=== PATIENT | male | born 1985 | race Caucasian/White ===

== ENCOUNTER → 2017-12-15 16:02 | Outpatient (CLI) | payer OTHER, MEDICAID, SELFPAY ==
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
[2017-12-15 17:25] LABS: Add Manual Diff / Slide Review NO; Basophils Percent Auto 0.8 % (0-2); Eosinophils Percent Auto 3.2 % (2-4); Hemoglobin 13.6 g/dL (13.5-17.5); Lymphocytes Percent Auto 20.7 % (25-40); Mean Corpuscular HGB Conc 33.9 % (30-36); Mean Corpuscular Volume 85.4 fL (80-100); Monocytes Percent Auto 5.4 % (3-14); Neutrophils Absolute Auto 6900 /uL (3000-5900); Neutrophils Percent Auto 69.9 % (50-75); Platelet Count 239 X10^3/uL (150-400); Red Blood Cell Count 4.68 X10^6/uL (4.5-5.9); Red Cell Distribution Width 13.5 % (11.6-14.8); White Blood Cell Count 9.9 X10^3/uL (4.5-11.0)
== END ==
PROVIDERS: PCP Family Medicine; Visit Provider Nurse Practitioner Family
DX: M54.16 Radiculopathy, lumbar region (principal); F41.9 Anxiety disorder, unspecified
CPT/HCPCS: 36415; 72100; 83013; 85025

== ENCOUNTER → 2017-12-25 12:55 | Outpatient (CLI) | payer OTHER, MEDICAID, SELFPAY ==
[2017-12-25 13:38] LABS: Alanine Aminotransferase 24 IU/L (21-72); Albumin 4.9 g/dL (3.5-5.0); Albumin Globulin Ratio 1.7 (1.0-2.8); Alkaline Phosphatase 56 U/L (38-126); Aspartate Aminotransferase 15 IU/L (17-59); Bilirubin Total 0.4 mg/dL (0.2-1.3); Blood Urea Nitrogen 16 mg/dL (9-20); Calcium 9.4 mg/dL (8.4-10.2); Carbon Dioxide 27 mmol/L (22-32); Chloride 104 mmol/L (98-107); Estimated Glomerular Filt Rate > 60.0 mL/min (>60); Globulin 2.9 g/dL (1.7-4.1); Glucose 99 mg/dL (70-100); HEMOLYSIS < 15 (0-50); Potassium 4.5 mmol/L (3.4-5.1); Sodium 143 mmol/L (137-145); Total Protein 7.8 g/dL (6.3-8.2)
[2017-12-25 14:25] LABS: TSH w/ Reflex to FT4 0.88 uIU/mL (0.47-4.68)
== END ==
PROVIDERS: PCP Family Medicine; Visit Provider Family Medicine
DX: R63.4 Abnormal weight loss (principal)
CPT/HCPCS: 36415; 80053; 84443

== ENCOUNTER → 2018-01-06 14:40 | Outpatient (CLI) | payer OTHER, MEDICAID, SELFPAY ==
--- NOTE | 2018-01-06 14:44 | DI.MRI.S_ITS ---
PROCEDURE: MR LUMBAR SPINE WO CON INDICATIONS: Low back pain with RLE sciatica TECHNIQUE: Noncontrast sagittal T1 spin echo and T2 fast echo, sagittal STIR, axial T1 and T2 fast spin echo through the lumbar spine. In cases with scoliosis, additional coronal T2 fast spin echo may be performed. COMPARISON: [facility], CR, XR LUMBAR SPINE 2-3V, 12/15/2017, 15:58. FINDINGS: Image quality: Excellent. Alignment and Curvature: There is mild straightening of normal curvature. Bone Marrow: Marrow is of normal overall signal. Increased marrow signal at L3 and L5 is present most suggestive of hemangiomas. No acute vertebral body compression fractures. Spinal Cord: Conus medullaris terminates at the L1-L2 level. Visualized cord demonstrates normal signal and size. Paraspinous Soft Tissues: No paravertebral masses. L1-L2: No disc bulge, spinal stenosis or foraminal narrowing. L2-L3: No disc bulge, spinal stenosis or foraminal narrowing. L3-L4: Trace disc bulge without spinal stenosis or foraminal narrowing. Minimal epidural lipomatosis. L4-L5: Trace disc bulge without spinal stenosis or foraminal narrowing. L5-S1: Trace disc bulge without spinal stenosis or foraminal narrowing. IMPRESSION: 1. Multilevel trace disc bulges. No spinal stenosis or foraminal narrowing. Dictated by: Malou Pearl M.D. on 01/06/2018 at 16:24 Approved by: Malou Pearl M.D. on 01/06/2018 at 16:26
== END ==
PROVIDERS: PCP Family Medicine; Visit Provider Family Medicine
DX: M51.26 Other intervertebral disc displacement, lumbar region (principal)
CPT/HCPCS: 72148

== ENCOUNTER → 2018-01-09 09:49 | Outpatient (CLI) | payer OTHER, MEDICAID, SELFPAY ==
--- NOTE | 2018-01-09 09:50 | DI.US.S_ITS ---
PROCEDURE: US ABDOMEN COMPLETE INDICATIONS: POSTPRANDIAL RIGHT UPPER QUADRANT PAIN TECHNIQUE: Real-time scanning was performed of the abdominal and retroperitoneal organs, with image documentation. COMPARISON: [facility], US, ABDOMEN COMPLETE, 09/04/2014, 21:21. FINDINGS: Liver: Liver is normal in size and homogeneous in echotexture. Gallbladder: No findings of gallstones or sludge are seen. The gallbladder wall is not thickened, measuring 3 mm or less. No specific pericholecystic fluid is seen. The sonographic Black sign is negative. Biliary ducts: Intrahepatic bile ducts are non-dilated. Extrahepatic bile duct caliber measures 3 mm. Normal is 6-7 mm or less in diameter, or 10 mm or less post-cholecystectomy. Pancreas: Visualized portions of the pancreas are sonographically normal. Spleen: Spleen is normal in size and homogeneous in echotexture. Kidneys: Kidneys are normal in size and echotexture. Right kidney measures 10.8 cm long; left kidney measures 10.1 cm long. No hydronephrosis or nephrolithiasis. No solid masses. The renal cortex measures within normal limits for thickness. Aorta: Visualized aorta is normal in caliber at less than 3 cm. Iliacs: Proximal common iliac arteries are normal in caliber at less than 2.5 cm. IVC: Intrahepatic inferior vena cava is patent. Miscellaneous: No free abdominal fluid. IMPRESSION: The gallbladder demonstrates a normal sonographic appearance. No biliary dilatation is seen. Dictated by: Dae Conner M.D. on 01/09/2018 at 10:30 Approved by: Dae Conner M.D. on 01/09/2018 at 10:31
== END ==
PROVIDERS: PCP Family Medicine; Visit Provider Family Medicine
DX: R10.11 Right upper quadrant pain (principal)
CPT/HCPCS: 76700

== ENCOUNTER → 2018-01-22 07:27 | Outpatient (CLI) | payer OTHER, MEDICAID, SELFPAY ==
--- NOTE | 2018-01-22 07:28 | DI.NM.S_ITS ---
PROCEDURE: NM HIDA WITH CCK PHARMACEUTICAL: 5.1 mCi Tc-99m mebrofenin IV; 1.1 mcg CCK IV. INDICATIONS: abdominal pain TECHNIQUE: Following intravenous administration of Tc-99m mebrofenin, sequential anterior abdominal images were obtained. To evaluate the contractile response of the gallbladder in response to Cholecystokinin (CCK), sincalide (0.02 ?g/kg) was administered by slow intravenous infusion approximately 60 minutes after the administration of the radiopharmaceutical. Sequential imaging was continued for 30 minutes after the start of CCK infusion. Gallbladder ejection fraction was calculated. COMPARISON: None. FINDINGS: Biliary scan: There is normal tracer uptake and excretion by the liver. There is normal visualization of the intrahepatic ducts, common bile duct, and gallbladder. There is normal tracer transit into the duodenum. CCK stimulation: There is normal contractile response of the gallbladder to CCK infusion. The calculated gallbladder ejection fraction is 76%; normal values are above 35%. It has been shown that any patient abdominal pain after CCK administration is related to the rate of CCK injection, rather than to any underlying gallbladder disease (Clinical Nuclear Medicine 2012; 37: 63-70. Journal of Nuclear Medicine 2014; 55: 1-9). IMPRESSION: Normal hepatobiliary scan. Normal gallbladder contractility. Dictated by: Romie De La Cruz M.D. on 01/22/2018 at 11:09 Approved by: Romie De La Cruz M.D. on 01/22/2018 at 11:10
== END ==
PROVIDERS: PCP Family Medicine; Visit Provider Family Medicine
DX: R10.9 Unspecified abdominal pain (principal)
CPT/HCPCS: 78227; A9537; J2805

== ENCOUNTER 2018-02-01 16:32 | Emergency (ER) | payer OTHER, MEDICAID, SELFPAY ==
[2018-02-01 16:45] VITALS: BP 120/73; PULSE 85; RESP 22; TEMP 36.8; O2SAT 100; BMI 17.7
--- NOTE | 2018-02-01 17:37 | PC.NURSE ---
Pt mother requests eval now. Feels being ignored. Before staff could go in and talk and explain busy ED, mother and pt walk out of ED. Signed VDC in registration.
--- NOTE | 2018-02-01 17:39 | PC.NURSE ---
Pt and mother return to room. Wait for provider is explained and apologies for wait times are made. Pt is given water to sip and provider will be in when available
--- NOTE | 2018-02-01 17:45 | ED_ITS ---
HPI - Anxiety <No Smith PA-C - Last Filed: 02/01/18 22:02> General Chief Complaint: Anxiety Stated Complaint: GI ISSUES, ZOLOFT CAUSING MORE PANIC ATTACKS Time Seen by Provider: 02/01/18 17:50 Source: patient and family Mode of arrival: ambulatory Limitations: no limitations History of Present Illness HPI narrative: This 32-year-old male comes in due to persistent anxiety and panic attacks. He has been using various medications for this for many years, not able to tolerate numerous SSRIs. Most recently on Abilify which she states he is tolerating without problems. Recent trial of sertraline seemed to make his GI symptoms worse. He had been on Xanax 1 mg 4-5 times daily until 1 week ago when he ran out. He wants to be off of this and has been in the past but tapered over time. He was seen at his PCP office Friday and states he was told they could not help with this or prescribe other medication. He is waiting for urgent appointment with mental health prescriber at [facility] and has seen a counselor there. He states that he feels anxious, jittery, with palpitations, however this is somewhat improved from a few days ago. He has not been able to sleep. He does not feel depressed or suicidal but feels constantly anxious. He has had ongoing nausea and anorexia for which he is seeing a GI specialist this week. This has not been worse today either and he denies any acute complaints, here with his mother to see if anything can be done for his anxiety. He had initially decided to leave the ER when not seen right away planning to follow up with his PCP, but later agreed to stay for visit. Related Data Previous Rx's Medication Instructions Recorded gabapentin 300 mg capsule 300 mg PO .COMPLEX #60 cap 12/12/17 aripiprazole 2 mg tablet 2 mg PO DAILY #30 tab 12/25/17 sertraline 50 mg tablet 50 mg PO DAILY #30 tab 12/25/17 zolpidem 5 mg tablet 5 mg PO BEDTIME PRN #30 tab 12/25/17 alprazolam 1 mg tablet 1 mg PO TID PRN #90 tab 01/05/18 lorazepam 1 mg tablet 1 mg PO Q12H PRN #30 tab 01/16/18 prednisone 20 mg tablet 20 mg PO DAILY #5 tab 01/27/18 Allergies Allergy/AdvReac Type Severity Reaction Status Date / Time No Known Drug Allergies Allergy Verified 01/27/18 19:29 Review of Systems <No Smith PA-C - Last Filed: 02/01/18 22:02> Review of Systems All systems reviewed & are unremarkable except as noted in HPI and below Exam <No Smith PA-C - Last Filed: 02/01/18 22:02> Narrative Exam Narrative: GENERAL APPEARANCE: Patient sitting comfortably, in no distress. HEENT: PERRL, EOMI, no scleral icterus, conjunctivae pink NECK: Supple, no masses LUNGS: Clear to auscultation bilaterally. HEART: Rate and rhythm regular, normal S1 and S2, no S3 or S4. ABDOMEN: Soft, nontender, nondistended, bowel sounds present x 4 quadrants EXTREMITIES: No edema DERMATOLOGIC: No jaundice or exanthem NEUROLOGIC: Alert and oriented with normal speech and coordination PSYCH: maintains good eye contact, speech with normal doron and appropriate to topic Initial Vital Signs Initial Vital Signs: Vital Signs Temperature 98.3 F 02/01/18 16:45 Pulse Rate 85 02/01/18 16:45 Respiratory Rate 22 02/01/18 16:45 Blood Pressure 120/73 02/01/18 16:45 Pulse Oximetry 100 02/01/18 16:45 <Flash Vyas MD - Last Filed: 02/01/18 23:48> Initial Vital Signs Initial Vital Signs: Vital Signs Temperature 98.3 F 02/01/18 16:45 Pulse Rate 85 02/01/18 16:45 Respiratory Rate 22 02/01/18 16:45 Blood Pressure 120/73 02/01/18 16:45 Pulse Oximetry 100 02/01/18 16:45 Course <No Smith PA-C - Last Filed: 02/01/18 22:02> Additional Information: Reviewed with patient and his mother that typically Xanax takes a long time to discontinue i.e. by tapering by 10% or so per week. He was on a significant dose of 4-5 mg daily. He was also using clonazepam as needed. We reviewed his other previous medication trials including antihistamines, various benzodiazepines and SSRIs, trazodone, and gabapentin. He does have a follow-up with his primary care provider tomorrow and it sounds like he will hopefully be able to get an appointment with a psychiatric prescriber in the short term. At this point a week after he has discontinued Xanax, it seems reasonable to try to have him remain off of it. It would likely be easier for him to taper off a longer-acting benzodiazepine such as clonazepam. Since he has taken at in the past, he was given a dose here for this evening. Advised to follow up with his PCP tomorrow to discuss continuing this and tapering down the dose, and to call [facility] 1st thing in the morning to determine status of his psychiatric prescriber appointment. He and his mother are agreeable with this plan Orders Ordered: Discontinued Medications Clonazepam (Klonopin) 1 mg PO NOW ONE Stop: 02/01/18 18:06 Last Admin: 02/01/18 18:34 Dose: 1 mg Vital Signs - 8 hr 02/01/18 16:45 02/01/18 18:09 Temperature 98.3 F Pulse Rate 85 70 Respiratory Rate 22 14 Blood Pressure 120/73 Blood Pressure [Right Arm] 127/87 H Pulse Oximetry 100 99 <Flash Vyas MD - Last Filed: 02/01/18 23:48> Orders Ordered: Discontinued Medications Clonazepam (Klonopin) 1 mg PO NOW ONE Stop: 02/01/18 18:06 Last Admin: 02/01/18 18:34 Dose: 1 mg Vital Signs - 8 hr 02/01/18 16:45 02/01/18 18:09 Temperature 98.3 F Pulse Rate 85 70 Respiratory Rate 22 14 Blood Pressure 120/73 Blood Pressure [Right Arm] 127/87 H Pulse Oximetry 100 99 MDM - Anxiety <No Smith PA-C - Last Filed: 02/01/18 22:02> ECG Data Attestation: I personally reviewed and interpreted this ECG as follows: (Normal sinus rhythm, normal axis, rate 85, no ST changes) Prior ECG tracings: not available for review Discharge Plan Departure Patient Disposition: Home, Self-Care Clinical Impression: Anxiety attack Discharge Date/Time: 02/01/18 18:54 Interventions: ED Discharge Assessment Last Done: 02/01/18 18:52 Instructions: Anxiety and Panic Attacks (Alternative Therapy), DI for Anxiety - - Adult Activity Restrictions/Additional Instructions: You should return if you are acutely worse, however you should otherwise follow up with your PCP and also psychiatric provider. You should see a prescriber at [place] as soon as you can. It is great that you want to be off of Xanax, however this medication takes a long time to discontinue with the dose that you were taking and this is likely why you are having more anxiety symptoms. You have been given a dose of clonazepam for tonight, which you have also taken in the past. This is much longer acting. Please call [facility] tomorrow morning, and also you should see your PCP as planned for follow-up to see whether they can help you in the interim, perhaps with a little bit of clonazepam to try to taper instead of the Xanax. Prescriptions: No Action zolpidem 5 mg tablet 5 mg PO BEDTIME PRN (Reason: insomnia) Qty: 30 RF: 0 sertraline 50 mg tablet 50 mg PO DAILY Qty: 30 RF: 3 aripiprazole [Abilify] 2 mg tablet 2 mg PO DAILY Qty: 30 RF: 3 gabapentin 300 mg capsule 300 mg PO .COMPLEX Qty: 60 RF: 0 prednisone 20 mg tablet 20 mg PO DAILY Qty: 5 RF: 0 alprazolam [Xanax] 1 mg tablet 1 mg PO TID PRN (Reason: anxiety) Qty: 90 RF: 0 lorazepam [Ativan] 1 mg tablet 1 mg PO Q12H PRN (Reason: anxiety) Qty: 30 RF: 0 Referrals: Jamil Sharif MD [Primary Care Provider] - <Flash Vyas MD - Last Filed: 02/01/18 23:48> [facility] I was available in ER for verbal consultation or to physically see the patient if need be. I agree with the evaluation and treatment plan.
[2018-02-01 18:09] VITALS: BP 127/87; PULSE 70; RESP 14; O2SAT 99
[2018-02-01] MEDS: clonazePAM 0.5 MG TABLET 1 MG PO (18:34)
--- NOTE | 2018-02-01 18:55 | PC.NURSE ---
PT REFUSED DEPART VITALS AT THIS TIME.
== END 2018-02-01 18:54 | disposition home or self-care (01) ==
PROVIDERS: Emergency Provider Internal Medicine; PCP Family Medicine
DX: F41.0 Panic disorder [episodic paroxysmal anxiety] (principal)
CPT/HCPCS: 93005; 93010; 99282; 99283

== ENCOUNTER 2018-09-10 10:39 | Emergency (ER) | payer OTHER, MEDICAID, SELFPAY ==
[2018-09-10] VITALS (10 sets, daily range): BP systolic 133–146; BP diastolic 79–99; PULSE 84–108; RESP 13–25; TEMP 37.1; O2SAT 99–100; BMI 22.7
--- NOTE | 2018-09-10 10:53 | ED.PSYCH ---
HPI - Psych General Chief Complaint: Psychiatric Symptoms Stated Complaint: Reaction to meds Time Seen by Provider: 09/10/18 10:53 Source: family Mode of arrival: ambulatory Limitations: altered mental status History of Present Illness HPI Narrative: Patient is a 33-year-old male. Apparently lives with his mother who is his welt stitch cleaner. Per report stop taking his medication a couple days ago. Unsure why this happened. Recently restarted the medication. Was brought in reportedly because he has been hearing voices. He is also stating that people were trying to poison him. Patient was unable to provide a significant amount of HPI or review of systems Related Data Home Medications Medication Instructions Recorded Confirmed escitalopram 10 mg tablet 10 mg PO DAILY 03/16/18 09/10/18 omeprazole 40 mg capsule,delayed 40 mg PO BID cap 03/16/18 03/16/18 release alprazolam [Xanax] 1 mg PO BID PRN 09/10/18 09/10/18 Previous Rx's Medication Instructions Recorded aripiprazole 2 mg tablet 2 mg PO DAILY #30 tab 05/04/18 Allergies Allergy/AdvReac Type Severity Reaction Status Date / Time No Known Drug Allergies Allergy Verified 09/10/18 10:50 Review of Systems Review of Systems Very limited given his mental condition ROS Unobtainable: Unobtainable due to medical condition Cardiovascular Denies chest pain and Denies dyspnea Respiratory Denies dyspnea Neurologic Reports behavioral changes (Per mother) Psychiatric Reports behavioral changes (Per mother) and Denies suicidal ideation Comments: Patient denied suicidal ideation but would not answer any other questions PFSH Medical History ADHD (attention deficit hyperactivity disorder) (Chronic Unknown) Chronic back pain (Chronic 2015) PTSD (post-traumatic stress disorder) (Chronic) Personality disorder (Chronic) Depression (Chronic) Bipolar 1 disorder (Chronic) Anxiety (Chronic) Abdominal pain (Acute) Carpal tunnel syndrome (Acute Unknown) Diarrhea (Acute) Polyarthritis of multiple sites (Acute) Rash and nonspecific skin eruption (Acute) Restless leg syndrome (Chronic Unknown) Sleep apnea (Chronic Unknown) Tinnitus of both ears (Chronic Unknown) Anorexia nervosa (Resolved ~2012) Chickenpox (Resolved) Fractures (Resolved Unknown) GI bleed (Resolved Unknown) ADHD (Inactive) Anorexia nervosa (Inactive ~2012) Chickenpox (Inactive) Chronic back pain (Inactive ~2015) GI bleeding (Inactive) Restless leg syndrome (Inactive) Sleep apnea (Inactive) Tinnitus (Inactive) [place] teeth extracted (Inactive) Surgical History Hx of wisdom tooth extraction (Resolved ~2007) Family History Father Hypertension Hyperlipidemia Heart disease Mental health problem Mother Hyperlipidemia Hypertension Brother Heart disease Autistic disorder Sister Hyperlipidemia Hypertension Social History Smoking Status: Former smoker alcohol intake: current (occasionally) substance use type: marijuana Social History Smoking Status: Former smoker alcohol intake: current (occasionally) substance use type: marijuana Exam Initial Vital Signs Initial Vital Signs: Vital Signs Temperature 98.7 F 09/10/18 10:50 Pulse Rate 84 09/10/18 10:50 Respiratory Rate 13 09/10/18 10:50 Blood Pressure 139/85 09/10/18 10:50 Pulse Oximetry 100 09/10/18 10:50 Const General: comfortable, well developed, well groomed and No acute distress Orientation: alert, awake, not oriented to person, oriented to place, not oriented to time and confused Limitations: altered mental status HENMT Head: normal to inspection and normocephalic Eyes Pupils: PERRL Resp Effort & Inspection: normal respiratory effort Cardio Rate: regular rate Rhythm: regular rhythm GI Inspection: non-distended Palpation: soft Skin Lesions: no lesions Rashes: no rashes Neuro General: alert and awake Cognition: abnormal cognition Speech: other (Pressured speech) Extrem General: normal to inspection and capillary refill normal Psych Appearance: disheveled (Short and pants on backwards) Mental Status: mental status grossly abnormal Speech and Movement: pressured speech and restless Mood: anxious mood, No angry and No irritable mood Affect: other (Paranoid) Attitude: other (Minimally cooperative with answering questions) Thought Process: other (Would not answer many of the questions asked) Thought Content: hallucinations Judgment: poor Course Orders Ordered: ED Orders 09/10/18 11:41 Acetaminophen Stat Complete Blood Count AUTO DIFF Stat Comprehensive Metabolic Panel Stat Ethanol (ETOH) Stat Lipase Stat Salicylate Stat Thyroid Stimulating Hormone Stat 09/10/18 11:46 Consult to Fitness Professional Stat 09/10/18 13:27 Urine Drug Screen, Rapid Stat Discontinued Medications Lorazepam (Ativan) 1 mg PO NOW ONE Stop: 09/10/18 11:47 Last Admin: 09/10/18 11:54 Dose: 1 mg Vital Signs - 8 hr 09/10/18 10:50 09/10/18 11:30 09/10/18 12:06 Temperature 98.7 F Pulse Rate 84 91 H 94 H Respiratory Rate 13 20 25 H Blood Pressure 139/85 Blood Pressure [Left Arm] 146/91 H 145/94 H Pulse Oximetry 100 100 99 09/10/18 13:10 09/10/18 14:39 09/10/18 15:17 Temperature Pulse Rate 93 H 100 H 108 H Respiratory Rate 23 17 24 Blood Pressure Blood Pressure [Left Arm] 133/91 H 134/89 136/87 Pulse Oximetry 100 100 100 09/10/18 17:30 09/10/18 18:12 Temperature Pulse Rate 93 H 85 Respiratory Rate 24 24 Blood Pressure Blood Pressure [Left Arm] 136/90 135/79 Pulse Oximetry 100 99 MDM - Psych Lab Data Attestation: I reviewed the patient's lab results. Result diagrams: 09/10/18 11:41 09/10/18 11:41 Lab Results 09/10/18 09/10/18 09/10/18 Range/Units 11:41 11:41 11:41 WBC 12.4 H (4.5-11.0) X10^3/uL RBC 5.39 (4.5-5.9) X10^6/uL Hgb 15.6 (13.5-17.5) g/dL Hct 46.1 (41-53) % MCV 85.5 (80-100) fL MCH 28.9 (26-34) PG MCHC 33.8 (30-36) % RDW 13.7 (11.6-14.8) % Plt Count 343 (150-400) X10^3/uL Neut % (Auto) 82.1 H (50-75) % Lymph % (Auto) 11.0 L (25-40) % Schleicher % (Auto) 6.6 (3-14) % Eos % (Auto) 0.0 L (2-4) % Baso % (Auto) 0.3 (0-2) % Neut # (Auto) 88517 H (2549-7328) /uL Lymph # (Auto) 1400 (1229-4402) /uL Schleicher # (Auto) 800 (0-900) /uL Eos # (Auto) 0 (0-450) /uL Baso # (Auto) 0 (0-100) /uL Sodium 142 (137-145) mmol/L Potassium 3.9 (3.4-5.1) mmol/L Chloride 103 (98-107) mmol/L Carbon Dioxide 23 (22-32) mmol/L BUN 20 (9-20) mg/dL Creatinine 0.70 (0.66-1.25) mg/dL Estimated GFR > 60.0 (>60) mL/min BUN/Creatinine Ratio 28.6 H (6-22) Glucose 117 H (70-100) mg/dL Calcium 10.3 H (8.4-10.2) mg/dL Total Bilirubin 0.8 (0.2-1.3) mg/dL AST 20 (17-59) IU/L ALT 22 (21-72) IU/L Alkaline Phosphatase 64 (38-126) U/L Total Protein 9.0 H (6.3-8.2) g/dL Albumin 5.5 H (3.5-5.0) g/dL Globulin 3.5 (1.7-4.1) g/dL Albumin/Globulin Ratio 1.6 (1.0-2.8) Lipase 26 (23-300) U/L TSH (0.47-4.68) uIU/mL Salicylates < 1.0 (<20) mg/dL Urine Opiates Screen (Negative) Ur Oxycodone Screen (Negative) Urine Methadone Screen (Negative) Acetaminophen < 10 L (10-30) ug/mL Ur Barbiturates Screen (Negative) U Tricyclic Antidepress (Negative) Ur Phencyclidine Scrn (Negative) Ur Amphetamines Screen (Negative) U Methamphetamines Scrn (Negative) Ur MDMA Scrn (Ecstasy) (Negative) U Benzodiazepines Scrn (Negative) Urine Cocaine Screen (Negative) U Marijuana (THC) Screen (Negative) Ethyl Alcohol < 10 mg/dL 09/10/18 09/10/18 Range/Units 11:41 13:27 WBC (4.5-11.0) X10^3/uL RBC (4.5-5.9) X10^6/uL Hgb (13.5-17.5) g/dL Hct (41-53) % MCV (80-100) fL MCH (26-34) PG MCHC (30-36) % RDW (11.6-14.8) % Plt Count (150-400) X10^3/uL Neut % (Auto) (50-75) % Lymph % (Auto) (25-40) % Schleicher % (Auto) (3-14) % Eos % (Auto) (2-4) % Baso % (Auto) (0-2) % Neut # (Auto) (3531-4989) /uL Lymph # (Auto) (6290-2827) /uL Schleicher # (Auto) (0-900) /uL Eos # (Auto) (0-450) /uL Baso # (Auto) (0-100) /uL Sodium (137-145) mmol/L Potassium (3.4-5.1) mmol/L Chloride (98-107) mmol/L Carbon Dioxide (22-32) mmol/L BUN (9-20) mg/dL Creatinine (0.66-1.25) mg/dL Estimated GFR (>60) mL/min BUN/Creatinine Ratio (6-22) Glucose (70-100) mg/dL Calcium (8.4-10.2) mg/dL Total Bilirubin (0.2-1.3) mg/dL AST (17-59) IU/L ALT (21-72) IU/L Alkaline Phosphatase (38-126) U/L Total Protein (6.3-8.2) g/dL Albumin (3.5-5.0) g/dL Globulin (1.7-4.1) g/dL Albumin/Globulin Ratio (1.0-2.8) Lipase (23-300) U/L TSH 0.43 L (0.47-4.68) uIU/mL Salicylates (<20) mg/dL Urine Opiates Screen Negative (Negative) Ur Oxycodone Screen Negative (Negative) Urine Methadone Screen Negative (Negative) Acetaminophen (10-30) ug/mL Ur Barbiturates Screen Negative (Negative) U Tricyclic Antidepress Negative (Negative) Ur Phencyclidine Scrn Negative (Negative) Ur Amphetamines Screen Negative (Negative) U Methamphetamines Scrn Negative (Negative) Ur MDMA Scrn (Ecstasy) Negative (Negative) U Benzodiazepines Scrn Negative (Negative) Urine Cocaine Screen Negative (Negative) U Marijuana (THC) Screen Positive H (Negative) Ethyl Alcohol mg/dL MDM Narrative Medical decision making narrative: The patient is voluntary. His mother is at bedside and she states that the way he is acting now is not his baseline. His counselor who knows him very well also came by the emergency department and stated that way he is acting now is also not baseline for him. I do have concern about his ability to make decisions. He has minimally willing/able to participate in my interview. He did specifically stated he was not having suicidal ideation. He did say that he was hearing voices. He appears extremely paranoid. He did agree to take some Ativan which did help his symptoms somewhat. His white blood cell count is slightly elevated. I suspect that this is a stress reaction. He has no signs of infection. No indication for antibiotics. He is positive for THC on his urine otherwise unremarkable UDS. Patient is medically clear. I do feel like he requires an admission to the hospital for his what appears to be acute psychosis/paranoia. The mother agrees with this. Social work has been involved here in the emergency department. Patient has remained stable and calm throughout his stay here in the ER. THALIA Bonilla at [facility] accept the patient in transport. Mother agrees with transfer. Patient agrees with transport. Patient is stable for transfer. Discharge Plan Departure Patient Disposition: Xfer Psychiatric Hosp Clinical Impression: Anxiety, Acute psychosis Referrals: Levar Gusman MD [Primary Care Provider] -
[2018-09-10 11:50] LABS: Add Manual Diff / Slide Review NO; Basophils Absolute Auto 0 /uL (0-100); Basophils Percent Auto 0.3 % (0-2); Eosinophils Absolute Auto 0 /uL (0-450); Hematocrit 46.1 % (41-53); Hemoglobin 15.6 g/dL (13.5-17.5); Lymphocytes Absolute Auto 1400 /uL (1100-4500); Mean Corpuscular HGB Conc 33.8 % (30-36); Mean Corpuscular Hemoglobin 28.9 PG (26-34); Mean Corpuscular Volume 85.5 fL (80-100); Monocytes Absolute Auto 800 /uL (0-900); Monocytes Percent Auto 6.6 % (3-14); Neutrophils Absolute Auto 10100 /uL (1500-7000); Neutrophils Percent Auto 82.1 % (50-75); Platelet Count 343 X10^3/uL (150-400); Red Blood Cell Count 5.39 X10^6/uL (4.5-5.9); Red Cell Distribution Width 13.7 % (11.6-14.8); White Blood Cell Count 12.4 X10^3/uL (4.5-11.0)
[2018-09-10] MEDS: LORazepam 1 MG TABLET PO (11:54)
[2018-09-10 12:02] LABS: Acetaminophen < 10 ug/mL (10-30); Alanine Aminotransferase 22 IU/L (21-72); Albumin 5.5 g/dL (3.5-5.0); Albumin Globulin Ratio 1.6 (1.0-2.8); Alkaline Phosphatase 64 U/L (38-126); Aspartate Aminotransferase 20 IU/L (17-59); BUN Creatinine Ratio 28.6 (6-22); Bilirubin Total 0.8 mg/dL (0.2-1.3); Blood Urea Nitrogen 20 mg/dL (9-20); Calcium 10.3 mg/dL (8.4-10.2); Carbon Dioxide 23 mmol/L (22-32); Chloride 103 mmol/L (98-107); Estimated Glomerular Filt Rate > 60.0 mL/min (>60); Ethanol (ETOH) < 10 mg/dL; Globulin 3.5 g/dL (1.7-4.1); Glucose 117 mg/dL (70-100); HEMOLYSIS < 15 (0-50); Lipase 26 U/L (23-300); Potassium 3.9 mmol/L (3.4-5.1); Sodium 142 mmol/L (137-145)
[2018-09-10 12:03] LABS: Salicylate < 1.0 mg/dL (<20)
--- NOTE | 2018-09-10 12:23 | PC.NURSE ---
Pt's psychiatrist here to see pt.
[2018-09-10 12:35] LABS: Thyroid Stimulating Hormone 0.43 uIU/mL (0.47-4.68)
--- NOTE | 2018-09-10 12:43 | PC.NURSE ---
Spoke with Caitlyn, therapist at [facility]. States pt has been having new onset of hallucinations. At baseline pt is anxious but not usually delusional. Pat state that if he can be of any assistance with placement to call [phone].
--- NOTE | 2018-09-10 13:39 | PC.NURSE ---
INDUSTRIAL HYGIENIST with patient.
[2018-09-10 13:47] LABS: Urine Amphetamines Negative (Negative); Urine Barbiturates Negative (Negative); Urine Benzodiazepines Negative (Negative); Urine Cocaine Negative (Negative); Urine MDMA Negative (Negative); Urine Methadone Negative (Negative); Urine Methamphetamines Negative (Negative); Urine Morphine/Opi cutoff 2000 Negative (Negative); Urine Oxycodone Negative (Negative); Urine Phencyclidine Negative (Negative); Urine Tetrahydrocannabinol Positive (Negative); Urine Tricyclic Antidepressant Negative (Negative)
--- NOTE | 2018-09-10 14:18 | CM.SWNOTE ---
Addendum entered by VANDANA Mckeon 09/11/18 13:23: Yesterday afternoon, [facility], [place] and [facility] were attempted for Voluntary bed placement and [place] accepted Ketan yesterday evening, Transfer coordination done by ED staff w/ following contact information: Viky Taylor P#[phone] F# [phone]. This morning, received call from counselor/ clinician Jaret Rivero (spelling?) P# [phone], we discussed Ketan's disposition. He explained he understood why Ketan was transferred to an inpt setting from the ER, though further stated he feels Ketan is in the beginning and acute phase of benzodiazepine w/d and feels additional medications might make things worse. Pat was advocating for a less restrictive home option w/ mom from ER. Pat reiterated he understood why Ketan met criteria to be transferred to an inpt setting based on his presentation to the ED 09.10.18. Caitlyn plans to f/u w/ treatment team at [place] and w/Ketan's mom Bridget to discuss ongoing treatment plan further. Caitlyn appreciative for the information. VANDANA Mckeon Original Note: PSYCH COORDINATOR Eval/ Assessment: Presenting Problem: Ketan is a 33 yo, presenting w/ mom Bridget after 2 days of increasing symptoms of acute psychosis. Ketan admits to being in the ER d/t worsening feelings of anxiousness. Mom Bridget states she is very worried about Ketan because she has never seen him like this; Ketan has been seeing people around him for days, he has been acting as if he is in a video game, telling his mom how many millions of people he has killed. He stares off into the distance and Bridget says he looks unreachable. Bridget is hopeful that Ketan can get into an inpt psychiatric unit for stabilization and medication management assistance. Bridget denies any aggressive behaviors from Ketan. Medical/ Psychiatric History: PMH significant for: ADHD, PTSD, Personality Disorder, Depression, Bipolar I, Anxiety. Keatn is seen by counselor Caitlyn P# [phone] through [facility]. Prescriber through [facility]. No prior h/o inpt psychiatric treatment per mom Bridget. No h/o detainment. No outstanding legal concerns. PSYCH COORDINATOR/MH Eval: Ketan is lying in bed, calm and cooperative at this time and since arrival to the ED. Ketan has very flat affect. He tells this PSYCH COORDINATOR he would like to see a doctor for approx. 7 days in order for his vitals to be checked and to make sure his risk of seizure activity remains low. Ketan and mom rBidget deny medical h/o seizure activity. Ketan is fidgety during our conversation, keeps good eye contact. He remains calm w/no pressured speech. He appears well groomed, appears younger than stated age, he wears a black beanie. When asked about prescribed medication, Ketan admits to stopping his escitalopram, xanax, and omeprazole at the same time, 2 days ago, because he wanted to have that clean and sober feeling. Ketan admits to suicidal ideation once in awhile, says to this PSYCH COORDINATOR he has a plan, then when asked to elaborate Ketan asks What? No I don't have a plan at this time, but I do think about it. Ketan denies current suicidal ideation, no prior suicide attempts. Ketan admits to hearing voices, very loud for days, arguing and antagonistic. They are very loud and boisterous. Ketan does not elaborate on what voices say to him or if they are commanding that he do things or hurt himself or others. Ketan denies drug or alcohol use. Ketan admits to not feeling right and is interested in an attempt at getting back to normal. He lives w/mom and says she is his main contact and support. Assessment/Recommendation: Ketan seems to be in an active, acute psychosis. He has auditory and visual hallucinations that are affecting his ability to function. He stopped his medication days ago. His counselor, Caitlyn, from [facility], stopped by the ER upon Ketan's presentation to attest this was not Ketan's baseline and he confirmed an inpt psychiatric stay would serve Ketan well at this time for MH stabilization. Dr Watson agrees based on his assessment of pt, inpt MH stabilization needed. Reviewed recommendations w/ Ketan and his mom and Ketan agrees to this PSYCH COORDINATOR searching for voluntary bed placement at this time. Ketan does say it will depend on the location, this PSYCH COORDINATOR reviewed process of inpt MH placement and strongly encouraged Ketan and his mom to consider voluntary efforts, all agreeable. Ketan might be a candidate for detainment if mood or presentation change; discussed this w/Alexis Watson. Following closely. VANDANA Mckeon
--- NOTE | 2018-09-10 15:34 | PC.NURSE ---
Received call from VANDANA Crooks. Deborah and Viky Hope both reviewing patient's chart.
--- NOTE | 2018-09-10 17:29 | PC.NURSE ---
Faxed in-patient certification form to [facility].
== END 2018-09-10 22:40 ==
PROVIDERS: Emergency Provider Emergency Medicine; PCP Student in an Organized Health Care Education/Training Program
DX: F41.9 Anxiety disorder, unspecified (principal); F23 Brief psychotic disorder
CPT/HCPCS: 36415; 80053; 80305; 80320; 80329; 83690; 84443; 85025; 99283; 99284; G0480

== ENCOUNTER → 2019-05-04 10:22 | Outpatient (CLI) | payer OTHER, MEDICAID, SELFPAY ==
[2019-05-04 10:48] LABS: Influenza A and B by PCR Rapid Negative (Negative)
== END ==
PROVIDERS: PCP Student in an Organized Health Care Education/Training Program; Visit Provider Nurse Practitioner
DX: R68.89 Other general symptoms and signs (principal)
CPT/HCPCS: 87502

== ENCOUNTER 2019-11-13 17:07 | Emergency (ER) | payer OTHER, MEDICAID, SELFPAY ==
[2019-11-13 17:30] VITALS: BP 138/91; PULSE 76; RESP 13; TEMP 36.9; O2SAT 99; BMI 22.8
[2019-11-13] MEDS: ONDANSETRON 4 MG ODT SL (18:04)
[2019-11-13 18:30] VITALS: BP 118/71; PULSE 67; RESP 38; O2SAT 100
[2019-11-13] MEDS: ONDANSETRON 4 MG/2 ML INJ IV (18:31)
[2019-11-13] MEDS: PANTOPRAZOLE 40 MG VIAL IV (18:31)
[2019-11-13] MEDS: SODIUM CHLORIDE 0.9% 1,000 ML 999 ML IV (18:31)
[2019-11-13 18:39] LABS: Add Manual Diff / Slide Review NO; Basophils Absolute Auto 0 /uL (0-100); Basophils Percent Auto 0.3 % (0-2); Eosinophils Absolute Auto 100 /uL (0-450); Eosinophils Percent Auto 0.6 % (2-4); Hemoglobin 14.9 g/dL (13.5-17.5); Lymphocytes Absolute Auto 1800 /uL (1100-4500); Lymphocytes Percent Auto 16.6 % (25-40); Mean Corpuscular HGB Conc 35.4 % (30-36); Mean Corpuscular Hemoglobin 30.9 PG (26-34); Mean Corpuscular Volume 87.4 fL (80-100); Monocytes Absolute Auto 500 /uL (0-900); Monocytes Percent Auto 4.4 % (3-14); Neutrophils Absolute Auto 8300 /uL (1500-7000); Neutrophils Percent Auto 78.1 % (50-75); Platelet Count 368 X10^3/uL (150-400); Red Blood Cell Count 4.81 X10^6/uL (4.5-5.9); Red Cell Distribution Width 14.4 % (11.6-14.8); White Blood Cell Count 10.6 X10^3/uL (4.5-11.0)
[2019-11-13 18:47] LABS: Lactate (Lactic Acid) 1.2 mmol/L (0.7-2.1)
[2019-11-13 18:48] LABS: Alanine Aminotransferase 44 IU/L (<50); Albumin 5.3 g/dL (3.5-5.0); Albumin Globulin Ratio 1.4 (1.0-2.8); Alkaline Phosphatase 96 U/L (38-126); Aspartate Aminotransferase 28 IU/L (17-59); BUN Creatinine Ratio 20.3 (6-22); Bilirubin Total 0.6 mg/dL (0.2-1.3); Blood Urea Nitrogen 15 mg/dL (9-20); Calcium 10.5 mg/dL (8.4-10.2); Carbon Dioxide 25 mmol/L (22-32); Chloride 100 mmol/L (98-107); Estimated Glomerular Filt Rate > 60.0 mL/min (>60); Globulin 3.8 g/dL (1.7-4.1); Glucose 136 mg/dL (70-100); HEMOLYSIS < 15 (0-50); Lipase 29 U/L (23-300); Potassium 4.1 mmol/L (3.4-5.1); Sodium 137 mmol/L (137-145); Total Protein 9.1 g/dL (6.3-8.2)
[2019-11-13 19:03] LABS: Procalcitonin < 0.05 ng/mL (<0.5)
[2019-11-13] MEDS: SODIUM CHLORIDE 0.9% 1,000 ML 1000 ML IV (19:33)
[2019-11-13 20:00] VITALS: BP 120/74; PULSE 89; RESP 26; O2SAT 97
[2019-11-13 20:30] VITALS: BP 114/73
[2019-11-13 21:09] VITALS: BP 114/73; PULSE 96; O2SAT 99
--- NOTE | 2019-11-13 21:09 | ED.NAVMDI ---
HPI - Nausea/Vomiting/Diarrhea <ROXANNA Jarvis - Last Filed: 11/13/19 22:03> General Chief complaint: Nausea/Vomiting/Diarrhea Stated complaint: EXTREME STOMACH PROBLEMS Time Seen by Provider: 11/13/19 17:34 Source: patient Mode of arrival: Ambulatory Limitations: no limitations History of Present Illness HPI Narrative: This is a 34-year-old male, former smoker, who has history of cholecystectomy in 2019, anxiety, bipolar disease, insomnia presents to ED with his mother with chief complain of sick to my stomach for last 4 days. Patient reports he has been having nausea and yellow and greenish bilious vomiting with diarrhea. Patient had about 10 times in last 24 hours and averaging 2 episodes of diarrhea per day. Patient states he had seen once blood in his stool which was bright red. Patient reports some abdominal discomfort above his umbilicus worsen right-sided. Reports become lightheaded when he is walking. Patient also reports myalgia, headaches, mild chills without fever. Patient denies known exposure to COVID-19 and has been self quarantine at home most of the times last 6 weeks. Patient denies urinary symptoms or flank pain. Patient states he takes zolpidem, venlafaxine, and Remeron which he had not taken for last 1-2 days due to nausea meeting. Patient denies routine alcohol intake but reports smokes marijuana to help with sleep regularly. Patient denies similar symptoms in the past. Patient denies other family member has similar symptoms. Patient denies close contacts with farm animals. Related Data Home Medications Medication Instructions Recorded Confirmed mirtazapine PO 03/21/19 09/03/19 Previous Rx's Medication Instructions Recorded mupirocin 2 % topical ointment 1 applictn TOP BID #15 gram 04/20/19 venlafaxine 75 mg tablet 150 mg PO DAILY #180 tab 09/03/19 zolpidem 10 mg tablet 10 mg PO BEDTIME PRN #30 tab 11/10/19 ondansetron 4 mg PO Q6-8H PRN #10 tab 11/13/19 Allergies Allergy/AdvReac Type Severity Reaction Status Date / Time No Known Drug Allergies Allergy Verified 11/13/19 17:35 Review of Systems <ROXANNA Jarvis Last Filed: 11/13/19 22:03> Review of Systems Narrative: General: Denies fever, chills, fatigue, malaise, sweats. HEENT: Denies sinus pain, ear pain, sore throat, difficulty swallowing, (+) dizziness. Respiratory: Denies dyspnea, cough, wheezing, hemoptysis, sputum. Cardiovascular: Denies chest pain, palpitations, (+) orthopnea, edema. Gastrointestinal: See HPI : Denies dysuria, frequency, incontinence, hematuria, urinary retention. Musculoskeletal: Denies weakness, joint pain or bony pain. Skin: Denies rash, skin lesions, or other. Neurologic: Denies weakness, headache, numbness, change in speech, confusion, seizures, incoordination. Psychiatric: No concerning psychosocial issues. 12-point review of systems is negative except for those stated above. Patient History <ROXANNA Jarvis - Last Filed: 11/13/19 22:03> Medical History ADHD (attention deficit hyperactivity disorder) (Chronic Unknown) Anorexia nervosa (Resolved ~2012) Anxiety (Chronic) Bipolar 1 disorder (Chronic) Carpal tunnel syndrome (Acute Unknown) Chickenpox (Inactive) Chickenpox (Resolved) Chronic back pain (Inactive ~2015) Chronic back pain (Chronic 2016) Depression (Chronic) Diarrhea (Acute) Fractures (Resolved Unknown) GI bleed (Resolved Unknown) GI bleeding (Inactive) Personality disorder (Chronic) Polyarthritis of multiple sites (Acute) PTSD (post-traumatic stress disorder) (Chronic) Rash and nonspecific skin eruption (Acute) Restless leg syndrome (Inactive) Restless leg syndrome (Chronic Unknown) Sleep apnea (Inactive) Sleep apnea (Chronic Unknown) Tinnitus (Inactive) Tinnitus of both ears (Chronic Unknown) Surgical History Hx of wisdom tooth extraction (Resolved ~2007) [place] teeth extracted (Inactive) Family History Father Hypertension Hyperlipidemia Heart disease Mental health problem Mother Hyperlipidemia Hypertension Brother Heart disease Autistic disorder Sister Hyperlipidemia Hypertension Social History Smoking Status: Former smoker alcohol intake: current (occasionally) substance use type: marijuana Smoking Status: Former smoker alcohol intake frequency: 0-2 drinks per day Substance Use Type: marijuana Exam <Mj ROXANNA Bauman - Last Filed: 11/13/19 22:03> Narrative Exam Narrative: GEN: Alert, oriented x 3, anxious and ill appearing, pale skin color and dry heaving during initial encounter. Head: Normal cephalic, atraumatic. No scalp or temporal tenderness, palpable mass or rash. EYES: Pupils are equal, round, and reactive to light and accommodation. Extraocular muscles are intact bilaterally. There is no subconjunctival hemorrhage, exudate and sclera non-icteric. ENT: Hearing grossly intact. Nose without bleeding, purulent discharge or deviation. Mucous membrane dry, no mucosal lesion. Throat without erythema, tonsillar hypertrophy or exudate. Uvula in midline, airway patent. Neck: Trachea in midline. No JVD, non-tender without lymphadenopathy. No masses or thyroid megaly. Supple, non-tender and no meningeal signs. CARDIAC: Normal regular rate and rhythm without murmurs, gallops, or rubs. No chest wall tenderness. No peripheral edema, cyanosis or pallor. Capillary refill is less than 2 seconds. RESPIRATORY: Lungs are clear to auscultate bilaterally. No cough, wheezes, rales, or rhonchi. No stridor, respiratory distress, increase work of breathing, or accessary muscle used. ABD: Abdomen soft, nontender and non-distended. No guarding or rebound tenderness to palpate. Bowel sounds are normal in all 4 quadrants. There is no palpable masses or organomegaly. EXT: Full painless ROM of all extremities with no loss of sensation, strength, effusion or edema. SKIN: Warm, dry, normal color for patient. No erythema, lesions or rash over visible areas. BACK: Nontender without deformity or crepitance. No flank tenderness. NEUROLOGICAL: Alert and oriented to place, time and person. Sensation and motor function intact bilaterally. No facial droops, dysphasia. PSYCHIATRIC: Good judgement and reason, without hallucinations, abnormal affect or abnormal behaviors during the examination. Patient is not suicidal. Initial Vital Signs Initial Vital Signs: Vital Signs Temperature 98.5 F 11/13/19 17:30 Pulse Rate 76 11/13/19 17:30 Respiratory Rate 13 11/13/19 17:30 Blood Pressure 138/91 H 05/16/20 17:30 Pulse Oximetry 99 11/13/19 17:30 <Facundo Dixon DO - Last Filed: 11/14/19 01:02> Initial Vital Signs Initial Vital Signs: Vital Signs Temperature 98.5 F 11/13/19 17:30 Pulse Rate 76 11/13/19 17:30 Respiratory Rate 13 11/13/19 17:30 Blood Pressure 138/91 H 11/13/19 17:30 Pulse Oximetry 99 11/13/19 17:30 Scores <Mj JohnstonROXANNA Miguel - Last Filed: 11/13/19 22:03> GCS [place] coma scale eye opening: Spontaneous [place] coma scale verbal response: Orientated [place] coma scale motor response: Obey commands [place] coma scale total score: 15 Course <Mj JohnstonROXANNA Miguel - Last Filed: 11/13/19 22:03> Orders Ordered: ED Orders 11/13/19 18:20 Complete Blood Count AUTO DIFF Stat Comprehensive Metabolic Panel Stat Lactate (Lactic Acid) Stat Lipase Stat Procalcitonin Stat 11/13/19 18:51 EKG-12 Lead Stat 11/13/19 20:55 Urine Culture Stat Urine Microscopic Stat Discontinued Medications Sodium Chloride (Normal Saline 0.9%) 1,000 mls @ 999 mls/hr IV CONT FREDERICK Last Infusion: 11/13/19 19:26 Dose: 0 mls/hr Documented by: Admin: 11/13/19 18:31 Dose: 999 mls/hr Documented by: PATRICIA Sodium Chloride (Normal Saline 0.9%) 1,000 mls @ 1,000 mls/hr IV BOLUS ONE Stop: 11/13/19 20:21 Last Infusion: 11/13/19 20:37 Dose: 0 mls/hr Documented by: Admin: 11/13/19 19:33 Dose: 1,000 mls/hr Documented by: PATRICIA Ondansetron HCl (Zofran Odt) 4 mg SL NOW ONE Stop: 11/13/19 18:00 Last Admin: 11/13/19 18:04 Dose: 4 mg Documented by: PATRICIA Ondansetron HCl (Zofran) 4 mg IV NOW ONE Stop: 11/13/19 18:00 Last Admin: 11/13/19 18:31 Dose: 4 mg Documented by: PATRICIA Ondansetron HCl (Zofran Odt Prepack) 1 bottle MISC SEEINSTR ONE Stop: 11/13/19 21:10 Last Admin: 11/13/19 22:04 Dose: 1 bottle Documented by: KATY Pantoprazole Sodium (Protonix) 40 mg IV NOW ONE Stop: 11/13/19 18:00 Last Admin: 11/13/19 18:31 Dose: 40 mg Documented by: PATRICIA Vital Signs Vital signs: Vital Signs - 8 hr 11/13/19 17:30 11/13/19 18:30 11/13/19 20:00 Temperature 98.5 F Pulse Rate 76 67 89 Respiratory Rate 13 38 H 26 H Blood Pressure 138/91 H Blood Pressure [Left Arm] 118/71 120/74 Pulse Oximetry 99 100 97 11/13/19 20:30 11/13/19 21:09 11/13/19 22:12 Temperature 98.4 F Pulse Rate 96 H 77 Respiratory Rate 16 Blood Pressure 118/77 Blood Pressure [Left Arm] 114/73 114/73 Pulse Oximetry 99 98 <Facundo Dixon, DO - Last Filed: 11/14/19 01:02> Orders Ordered: ED Orders 11/13/19 18:20 Complete Blood Count AUTO DIFF Stat Comprehensive Metabolic Panel Stat Lactate (Lactic Acid) Stat Lipase Stat Procalcitonin Stat 11/13/19 18:51 EKG-12 Lead Stat 11/13/19 20:55 Urine Culture Stat Urine Microscopic Stat Discontinued Medications Sodium Chloride (Normal Saline 0.9%) 1,000 mls @ 999 mls/hr IV CONT FREDERICK Last Infusion: 11/13/19 19:26 Dose: 0 mls/hr Documented by: Admin: 11/13/19 18:31 Dose: 999 mls/hr Documented by: PATRICIA Sodium Chloride (Normal Saline 0.9%) 1,000 mls @ 1,000 mls/hr IV BOLUS ONE Stop: 11/13/19 20:21 Last Infusion: 11/13/19 20:37 Dose: 0 mls/hr Documented by: Admin: 11/13/19 19:33 Dose: 1,000 mls/hr Documented by: PATRICIA Ondansetron HCl (Zofran Odt) 4 mg SL NOW ONE Stop: 11/13/19 18:00 Last Admin: 11/13/19 18:04 Dose: 4 mg Documented by: PATRICIA Ondansetron HCl (Zofran) 4 mg IV NOW ONE Stop: 11/13/19 18:00 Last Admin: 11/13/19 18:31 Dose: 4 mg Documented by: PATRICIA Ondansetron HCl (Zofran Odt Prepack) 1 bottle MISC SEEINSTR ONE Stop: 11/13/19 21:10 Last Admin: 11/13/19 22:04 Dose: 1 bottle Documented by: KATY Pantoprazole Sodium (Protonix) 40 mg IV NOW ONE Stop: 11/13/19 18:00 Last Admin: 11/13/19 18:31 Dose: 40 mg Documented by: PATRICIA Vital Signs Vital signs: Vital Signs - 8 hr 11/13/19 17:30 11/13/19 18:30 11/13/19 20:00 Temperature 98.5 F Pulse Rate 76 67 89 Respiratory Rate 13 38 H 26 H Blood Pressure 138/91 H Blood Pressure [Left Arm] 118/71 120/74 Pulse Oximetry 99 100 97 11/13/19 20:30 11/13/19 21:09 11/13/19 22:12 Temperature 98.4 F Pulse Rate 96 H 77 Respiratory Rate 16 Blood Pressure 118/77 Blood Pressure [Left Arm] 114/73 114/73 Pulse Oximetry 99 98 MDM - Nausea/Vomiting/Diarrhea <[facility] - Last Filed: 11/13/19 22:03> Differential Diagnosis Differential diagnosis: Likely gastroenteritis, drug-induced nausea and vomiting, dehydration and other (Bowel obstruction, pancreatitis, Covid 19) Medical Records Attestation: I reviewed the patient's medical records. Lab Data Attestation: I reviewed the patient's lab results. Result diagrams: 11/13/19 18:20 11/13/19 18:20 Labs: Lab Results 11/13/19 11/13/19 11/13/19 Range/Units 18:20 18:20 18:20 WBC 10.6 (4.5-11.0) X10^3/uL RBC 4.81 (4.5-5.9) X10^6/uL Hgb 14.9 (13.5-17.5) g/dL Hct 42.0 (41-53) % MCV 87.4 (80-100) fL MCH 30.9 (26-34) PG MCHC 35.4 (30-36) % RDW 14.4 (11.6-14.8) % Plt Count 368 (150-400) X10^3/uL Neut % (Auto) 78.1 H (50-75) % Lymph % (Auto) 16.6 L (25-40) % [place] % (Auto) 4.4 (3-14) % Eos % (Auto) 0.6 L (2-4) % Baso % (Auto) 0.3 (0-2) % Neut # (Auto) 8300 H (5467-5194) /uL Lymph # (Auto) 1800 (8545-9814) /uL [place] # (Auto) 500 (0-900) /uL Eos # (Auto) 100 (0-450) /uL Baso # (Auto) 0 (0-100) /uL Sodium 137 (137-145) mmol/L Potassium 4.1 (3.4-5.1) mmol/L Chloride 100 (98-107) mmol/L Carbon Dioxide 25 (22-32) mmol/L BUN 15 (9-20) mg/dL Creatinine 0.74 (0.66-1.25) mg/dL Estimated GFR > 60.0 (>60) mL/min BUN/Creatinine Ratio 20.3 (6-22) Glucose 136 H (70-100) mg/dL Lactate (0.7-2.1) mmol/L Calcium 10.5 H (8.4-10.2) mg/dL Total Bilirubin 0.6 (0.2-1.3) mg/dL AST 28 (17-59) IU/L ALT 44 (<50) IU/L Alkaline Phosphatase 96 (38-126) U/L Total Protein 9.1 H (6.3-8.2) g/dL Albumin 5.3 H (3.5-5.0) g/dL Globulin 3.8 (1.7-4.1) g/dL Albumin/Globulin Ratio 1.4 (1.0-2.8) Lipase 29 (23-300) U/L Procalcitonin < 0.05 (<0.5) ng/mL Urine RBC (0-5/HPF) Urine WBC (0-5/HPF) Ur Squamous Epith Cells (0-5/HPF) Urine Bacteria (None) Urine Mucus (Negative) Ur Culture Indicated? 11/13/19 11/13/19 Range/Units 18:20 20:55 WBC (4.5-11.0) X10^3/uL RBC (4.5-5.9) X10^6/uL Hgb (13.5-17.5) g/dL Hct (41-53) % MCV (80-100) fL MCH (26-34) PG MCHC (30-36) % RDW (11.6-14.8) % Plt Count (150-400) X10^3/uL Neut % (Auto) (50-75) % Lymph % (Auto) (25-40) % [place] % (Auto) (3-14) % Eos % (Auto) (2-4) % Baso % (Auto) (0-2) % Neut # (Auto) (2692-1353) /uL Lymph # (Auto) (0895-0483) /uL [place] # (Auto) (0-900) /uL Eos # (Auto) (0-450) /uL Baso # (Auto) (0-100) /uL Sodium (137-145) mmol/L Potassium (3.4-5.1) mmol/L Chloride (98-107) mmol/L Carbon Dioxide (22-32) mmol/L BUN (9-20) mg/dL Creatinine (0.66-1.25) mg/dL Estimated GFR (>60) mL/min BUN/Creatinine Ratio (6-22) Glucose (70-100) mg/dL Lactate 1.2 (0.7-2.1) mmol/L Calcium (8.4-10.2) mg/dL Total Bilirubin (0.2-1.3) mg/dL AST (17-59) IU/L ALT (<50) IU/L Alkaline Phosphatase (38-126) U/L Total Protein (6.3-8.2) g/dL Albumin (3.5-5.0) g/dL Globulin (1.7-4.1) g/dL Albumin/Globulin Ratio (1.0-2.8) Lipase (23-300) U/L Procalcitonin (<0.5) ng/mL Urine RBC None seen (0-5/HPF) Urine WBC 0-1/hpf (0-5/HPF) Ur Squamous Epith Cells 1-5 /hpf (0-5/HPF) Urine Bacteria Few (2-10) H (None) Urine Mucus 1+ H (Negative) Ur Culture Indicated? Specimen cultured Urine Dip Bedside Urine Glucose Negative Bedside Urine Bilirubin - Negative Bedside Urine Ketone +++ 80 Urine Specific [place] 1.025 Bedside Urine Occult Blood - Negative Bedside Urine pH 6.0 Bedside Urine Protein + 30 Bedside Urine Urobilinogen - Negative Bedside Urine Nitrite - Negative Bedside Urine Leukocytes +/- 15 Esterase MDM Narrative Medical decision making narrative: This is a 34 year male who presents to ED with nausea, vomiting, diarrhea for last 4 days. States had 1 episode of blood in diarrhea which resolved. Patient initially declined IV insertion for blood draw to treat his symptoms and evaluation. Later, he agrees with IV therapy for hydration and Zofran IV medication for nausea and vomiting. Patient was hydrated with 2 L of normal saline and pantoprazole IV. Initially he was treated with Zofran orally. Lab tests were unremarkable without leukocytosis, lactate, procalcitonin with unremarkable chemistry test. After patient symptoms improved, abdominal exam was done. Abdomen was soft with bowel sounds in 4 quadrants and no pain with palpation. We discussed about considering imaging test but patient is feeling better without significant abdominal pain and unremarkable lab test, this has been deferred. Patient was able to tolerate ice water before discharged to home. Strict return precautions were discussed with patient and patient discharged to home with prepack Zofran and additional prescription for Zofran. Patient was able to void before discharged to home but was unable to provide stool sample. UA indicates ketons, protein and small amount of urine leukocytes esterase without nitrites. Micro tests shows few bacteria with urine mucus. COVID-19 swab is pending and urine cultures pending. <Facundo Dxion, - Last Filed: 11/14/19 01:02> Lab Data Labs: Lab Results 11/13/19 11/13/19 11/13/19 Range/Units 18:20 18:20 18:20 WBC 10.6 (4.5-11.0) X10^3/uL RBC 4.81 (4.5-5.9) X10^6/uL Hgb 14.9 (13.5-17.5) g/dL Hct 42.0 (41-53) % MCV 87.4 (80-100) fL MCH 30.9 (26-34) PG MCHC 35.4 (30-36) % RDW 14.4 (11.6-14.8) % Plt Count 368 (150-400) X10^3/uL Neut % (Auto) 78.1 H (50-75) % Lymph % (Auto) 16.6 L (25-40) % [place] % (Auto) 4.4 (3-14) % Eos % (Auto) 0.6 L (2-4) % Baso % (Auto) 0.3 (0-2) % Neut # (Auto) 8300 H (5328-3317) /uL Lymph # (Auto) 1800 (1271-3930) /uL [place] # (Auto) 500 (0-900) /uL Eos # (Auto) 100 (0-450) /uL Baso # (Auto) 0 (0-100) /uL Sodium 137 (137-145) mmol/L Potassium 4.1 (3.4-5.1) mmol/L Chloride 100 (98-107) mmol/L Carbon Dioxide 25 (22-32) mmol/L BUN 15 (9-20) mg/dL Creatinine 0.74 (0.66-1.25) mg/dL Estimated GFR > 60.0 (>60) mL/min BUN/Creatinine Ratio 20.3 (6-22) Glucose 136 H (70-100) mg/dL Lactate (0.7-2.1) mmol/L Calcium 10.5 H (8.4-10.2) mg/dL Total Bilirubin 0.6 (0.2-1.3) mg/dL AST 28 (17-59) IU/L ALT 44 (<50) IU/L Alkaline Phosphatase 96 (38-126) U/L Total Protein 9.1 H (6.3-8.2) g/dL Albumin 5.3 H (3.5-5.0) g/dL Globulin 3.8 (1.7-4.1) g/dL Albumin/Globulin Ratio 1.4 (1.0-2.8) Lipase 29 (23-300) U/L Procalcitonin < 0.05 (<0.5) ng/mL Urine RBC (0-5/HPF) Urine WBC (0-5/HPF) Ur Squamous Epith Cells (0-5/HPF) Urine Bacteria (None) Urine Mucus (Negative) Ur Culture Indicated? 11/13/19 11/13/19 Range/Units 18:20 20:55 WBC (4.5-11.0) X10^3/uL RBC (4.5-5.9) X10^6/uL Hgb (13.5-17.5) g/dL Hct (41-53) % MCV (80-100) fL MCH (26-34) PG MCHC (30-36) % RDW (11.6-14.8) % Plt Count (150-400) X10^3/uL Neut % (Auto) (50-75) % Lymph % (Auto) (25-40) % [place] % (Auto) (3-14) % Eos % (Auto) (2-4) % Baso % (Auto) (0-2) % Neut # (Auto) (7220-6331) /uL Lymph # (Auto) (1424-9044) /uL [place] # (Auto) (0-900) /uL Eos # (Auto) (0-450) /uL Baso # (Auto) (0-100) /uL Sodium (137-145) mmol/L Potassium (3.4-5.1) mmol/L Chloride (98-107) mmol/L Carbon Dioxide (22-32) mmol/L BUN (9-20) mg/dL Creatinine (0.66-1.25) mg/dL Estimated GFR (>60) mL/min BUN/Creatinine Ratio (6-22) Glucose (70-100) mg/dL Lactate 1.2 (0.7-2.1) mmol/L Calcium (8.4-10.2) mg/dL Total Bilirubin (0.2-1.3) mg/dL AST (17-59) IU/L ALT (<50) IU/L Alkaline Phosphatase (38-126) U/L Total Protein (6.3-8.2) g/dL Albumin (3.5-5.0) g/dL Globulin (1.7-4.1) g/dL Albumin/Globulin Ratio (1.0-2.8) Lipase (23-300) U/L Procalcitonin (<0.5) ng/mL Urine RBC None seen (0-5/HPF) Urine WBC 0-1/hpf (0-5/HPF) Ur Squamous Epith Cells 1-5 /hpf (0-5/HPF) Urine Bacteria Few (2-10) H (None) Urine Mucus 1+ H (Negative) Ur Culture Indicated? Specimen cultured Urine Dip Bedside Urine Glucose Negative Bedside Urine Bilirubin - Negative Bedside Urine Ketone +++ 80 Urine Specific [place] 1.025 Bedside Urine Occult Blood - Negative Bedside Urine pH 6.0 Bedside Urine Protein + 30 Bedside Urine Urobilinogen - Negative Bedside Urine Nitrite - Negative Bedside Urine Leukocytes +/- 15 Esterase Discharge Plan Departure Patient Disposition: Home Clinical Impression: Gastroenteritis Discharge Date/Time: 11/13/19 22:15 Instructions: DI for Viral Gastroenteritis -- Adult Activity Restrictions/Additional Instructions: You have been diagnosed with [gastroenteritis- nausea, vomiting, diarrhea likely from virus. Today's lab tests are unremarkable normal white count, chemistry test, normal lactate and procalcitonin. Your hydrated with 2 L of IV fluid with Zofran. Your symptoms improved and abdominal physical exam was unremarkable. You are able to tolerate water without vomiting before leaving ED. urine culture is pending and will receive a phone call if you require antibiotic medication. Covid results will be ready in 3-5 days and your receive a phone call from us. Please take Covid precautions]. What to do: *Take your medications as directed. Please use Zofran as needed for nausea and vomiting. Since it is not sure you have infectious diarrhea so Imodium is not ordered. [facility] *Follow up with your primary care provider in 2-3 days, call for an appointment. Let them know you were seen in the ED and that we asked you to be seen in follow up. Contact Dr. Gusman if diarrhea persist you have stool sample. *Return to ED if you have any new, worsening, or concerning symptoms, such as [chest pain, breathing difficulty, unable to tolerate fluids with medication, worsening pain, fever, or any acute concerns.]. Prescriptions: New ondansetron 4 mg tablet,disintegrating 4 mg PO Q6-8H PRN (Reason: nausea and vomiting) Qty: 10 RF: 0 No Action mirtazapine PO RF: 0 mupirocin 2 % ointment 1 applictn TOP BID Qty: 15 RF: 0 zolpidem 10 mg tablet 10 mg PO BEDTIME PRN (Reason: insomnia) Qty: 30 RF: 4 venlafaxine 75 mg tablet 150 mg PO DAILY Qty: 180 RF: 1 Referrals: Levar Gusman MD [Primary Care Provider] - <Facundo Dixon DO - Last Filed: 11/14/19 01:02> Cosign ED Attending Cosignature Attestation: I was immediately available in the department for consultation. This documentation has been reviewed and I agree with assessment and plan. Supervised by Facundo Dixon DO
--- NOTE | 2019-11-13 21:10 | PC.NURSE ---
Pt very pale and clammy upon arrival to ED
[2019-11-13 21:46] LABS: RBC Urine None Seen (0-5/HPF)
[2019-11-13 21:52] LABS: Bacteria Urine Few (2-10); Mucus Urine 1+ (Negative); Squamous Epithelial Cell Urine 1-5 /HPF (0-5/HPF); WBC Urine 0-1/HPF (0-5/HPF)
[2019-11-13 21:53] LABS: Culture Indicated Urine Specimen Cultured
[2019-11-13] MEDS: ONDANSETRON 4 MG ODT PREPACK 1 BOTTLE MISC (22:04)
[2019-11-13 22:12] VITALS: BP 118/77; PULSE 77; RESP 16; TEMP 36.9; O2SAT 98
[2019-11-15 05:57] LABS: COVID19 Sendout Not Detected (Not Detect)
--- NOTE | 2019-11-16 14:05 | PC.NURSE ---
pt called back, covid 19 negative.
== END 2019-11-13 22:15 | disposition home or self-care (01) ==
PROVIDERS: Emergency Provider Nurse Practitioner Family; PCP Student in an Organized Health Care Education/Training Program
DX: Z03.818 Encounter for observation for suspected exposure to other biological agents ruled out (principal); K52.9 Noninfective gastroenteritis and colitis, unspecified
CPT/HCPCS: 36415; 80053; 81003; 81015; 83605; 83690; 84145; 85025; 87086; 87635; 93005; 96361; 96374; 96375; 99284; C9113; J2405

== ENCOUNTER 2020-01-12 17:15 | Emergency (ER) | payer OTHER, MEDICAID, SELFPAY ==
[2020-01-12 17:46] VITALS: BP 142/90; PULSE 95; RESP 24; TEMP 37.1; O2SAT 98; BMI 24.3
--- NOTE | 2020-01-12 18:03 | ED.ANXIETY ---
HPI - Anxiety General Chief Complaint: Anxiety Stated Complaint: States here for evaluation Time Seen by Provider: 01/12/20 18:00 Source: patient Mode of arrival: Ambulatory Limitations: no limitations History of Present Illness HPI narrative: 34M former smoker with a history of anxiety and depression presents with his mother at the request of [facility]. He states that he has been having increased depression and rising levels of anxiety due to an upcoming move from [facility] to [place]. He is making the move to be closer to family and his mother is in town to help him get through the process. He has had some suicidal thoughts but is very firm that he will not act on. He states that he sometimes gets this way when his anxiety gets high. He used to be on multiple psychotropic medications but well over 1 year ago his provider put him on venlafaxine and stopped his other medications. He has questioned whether not venlafaxine is the right medication for for sometime and hopes to establish with a new doctor in [facility] to help sort out an appropriate medication regimen. He denies any homicidal ideation and is able to care for himself. He states that he has no auditory or visual hallucinations. He initially presented to the [facility] but was sent here when he mentioned that he had some suicidal thoughts. He does NOT have a plan. MD complaint: anxiety Onset (ago): day(s) Symptoms: other Severity: moderate Quality: constant Place: home History of similar episodes: Yes Provoking factors: emotional stress Relieving factors: nothing Exacerbating factors: thinking about event Associated symptoms: denies other symptoms Related Data Home Medications Medication Instructions Recorded Confirmed mirtazapine PO 03/21/19 12/29/19 omeprazole 20 mg capsule,delayed 20 mg PO DAILY 12/29/19 12/29/19 release Previous Rx's Medication Instructions Recorded venlafaxine 75 mg tablet 150 mg PO DAILY #180 tab 09/03/19 ondansetron 4 mg PO Q6-8H PRN #10 tab 11/13/19 mupirocin 2 % topical ointment 1 applictn TOP BID #15 gram 11/30/19 eszopiclone 1 mg tablet 1 mg PO BEDTIME #30 tab 12/21/19 alprazolam [Xanax] 2 mg PO BID PRN #14 tab 01/12/20 Allergies Allergy/AdvReac Type Severity Reaction Status Date / Time No Known Drug Allergies Allergy Verified 12/29/19 13:56 Review of Systems Constitutional Constitutional: Denies chills, Denies fatigue, Denies fever(s), Denies frequent falls, Denies lethargy and Denies weakness Eyes Eyes: Denies change in vision, Denies eye discharge, Denies irritation and Denies loss of vision ENT Ears, Nose, Mouth, and Throat: Denies change in voice, Denies dizziness, Denies neck pain, Denies sore throat and Denies throat swelling Cardiovascular Cardiovascular: Denies chest pain, Denies irregular heart rhythm, Denies lightheadedness, Denies palpitations, Denies dyspnea, Denies dyspnea on exertion and Denies orthopnea Respiratory Respiratory: Denies cough, Denies dyspnea, Denies dyspnea on exertion and Denies wheezing Gastrointestinal Gastrointestinal: Denies abdominal pain, Denies change in bowel habits, Denies diarrhea, Denies nausea and Denies vomiting Musculoskeletal Musculoskeletal: Denies neck pain and Denies numbness Integumentary/Breasts Skin/Breast: Denies pruritus, Denies erythema, Denies rash and Denies wounds Neurologic Neurologic: Denies behavioral changes, Denies confusion, Denies dizziness, Denies frequent falls, Denies loss of vision, Denies numbness and Denies weakness Psychiatric Psychiatric: Reports anxiety, Denies behavioral changes, Denies confusion, Denies depression, Denies homicidal ideation and Denies suicidal ideation Endocrine Endocrine: Denies fatigue, Denies flushing and Denies palpitations Hematologic/Lymphatic Hematologic/Lymphatic: Denies easy bruising Allergic/Immunologic Allergic/Immunologic: Denies urticaria, Denies throat swelling and Denies wheezing Patient History Medical History (Updated 01/12/20 @ 18:25 by Facundo Dixon DO) ADHD (attention deficit hyperactivity disorder) (Chronic Unknown) Anorexia nervosa (Resolved ~2012) Anxiety (Chronic) Bipolar 1 disorder (Chronic) Carpal tunnel syndrome (Acute Unknown) Chickenpox (Inactive) Chickenpox (Resolved) Chronic back pain (Inactive ~2016) Chronic back pain (Chronic 2016) Depression (Chronic) Diarrhea (Acute) Fractures (Resolved Unknown) GI bleed (Resolved Unknown) GI bleeding (Inactive) Personality disorder (Chronic) Polyarthritis of multiple sites (Acute) PTSD (post-traumatic stress disorder) (Chronic) Rash and nonspecific skin eruption (Acute) Restless leg syndrome (Inactive) Restless leg syndrome (Chronic Unknown) Sleep apnea (Inactive) Sleep apnea (Chronic Unknown) Suicidal ideation (Acute) Tinnitus (Inactive) Tinnitus of both ears (Chronic Unknown) Surgical History Hx of wisdom tooth extraction (Resolved ~2007) [place] teeth extracted (Inactive) Family History Father Hypertension Hyperlipidemia Heart disease Mental health problem Mother Hyperlipidemia Hypertension Insomnia Depression Brother Heart disease Autistic disorder Insomnia Sister Hyperlipidemia Hypertension Family/Other Loud snoring Hypertension Diabetes mellitus Anxiety Dementia Alcohol abuse Social History Smoking Status: Former smoker alcohol intake: current (occasionally) substance use type: marijuana Smoking Status: Former smoker alcohol intake frequency: 0-2 drinks per day Substance Use Type: marijuana Exam Narrative Exam Narrative: GENERAL: [34] year old patient appears stated age. Well-nourished, well-developed patient, in mild distress. Rather flat affect, good eye contact and good insight HEAD: Atraumatic. Normocephalic. EYES: Pupils equal round and reactive. Extraocular motions intact. No scleral icterus. No injection or drainage. ENT: Nose without bleeding, purulent drainage. Throat without erythema, tonsillar hypertrophy or exudate. Airway patent. NECK: Trachea midline. Non tender CARDIOVASCULAR: Regular rate and rhythm without murmurs, gallops, or rubs. RESPIRATORY: Clear to auscultation. Breath sounds equal bilaterally. No wheezes, rales, or rhonchi. GASTROINTESTINAL: Abdomen soft, non-tender, nondistended. EXTREMITIES: No edema or joint tenderness. BACK: Nontender without deformity or crepitance. No flank tenderness. NEURO: AOx3. SKIN: No rash or erythema of visible areas Initial Vital Signs Initial Vital Signs: Vital Signs Temperature 98.7 F 01/12/20 17:46 Pulse Rate 95 H 01/12/20 17:46 Respiratory Rate 24 01/12/20 17:46 Blood Pressure 142/90 H 01/12/20 17:46 Pulse Oximetry 98 01/12/20 17:46 Course Course Course Narrative: Extensive discussion with the patient and his mother at the bedside. Patient does feel bit overwhelmed by his circumstances but is comforted by the ?light at the end of the tunnel ?. He does have some occasional SI, but assures me that he would never act on them. His mother confirms this belief. She manages his medications and will be with him until and through the move. They would prefer a more conservative approach today, understand the return precautions, and are in agreement with the plan. Vital Signs Vital signs: Vital Signs - 8 hr 01/12/20 17:46 Temperature 98.7 F Pulse Rate 95 H Respiratory Rate 24 Blood Pressure 142/90 H Pulse Oximetry 98 Discharge Plan Departure Patient Disposition: Home Clinical Impression: Anxiety Discharge Date/Time: 01/12/20 18:36 Instructions: Anxiety Disorders Activity Restrictions/Additional Instructions: *You have been diagnosed with [anxiety] *What to do: *Take medications as directed: Prescription was sent to [facility] in [place]. As we discussed, please break the Xanax in half to achieve more appropriate dosing for you. *Follow up with your primary care provider in 2-3 days, call for an appointment. Let them know you were seen in the Emergency Department and that we ask that you be seen in follow up *Return to ER if you should have any new, worsening or concerning symptoms *If you feel that you are entering into mental health crisis you have multiple options 1. Return to the ER immediately 2. Call the Crisis Line at [phone] 3. Send an anonymous text by sending the [place] to [phone] 4. Navigate your web browser to [facility] [employer] [facility] to engage in anonymous chat with a mental health worker Prescriptions: New alprazolam [Xanax] 2 mg tablet 2 mg PO BID PRN (Reason: anxiety) Qty: 14 RF: 0 No Action mirtazapine PO RF: 0 eszopiclone [Lunesta] 1 mg tablet 1 mg PO BEDTIME Qty: 30 RF: 0 venlafaxine 75 mg tablet 150 mg PO DAILY Qty: 180 RF: 1 omeprazole 20 mg capsule,delayed release(DR/EC) 20 mg PO DAILY RF: 0 mupirocin 2 % ointment 1 applictn TOP BID Qty: 15 RF: 0 ondansetron 4 mg tablet,disintegrating 4 mg PO Q6-8H PRN (Reason: nausea and vomiting) Qty: 10 RF: 0 Referrals: [facility] [Outside] Levar Gusman MD [Primary Care Provider] -
== END 2020-01-12 18:36 | disposition home or self-care (01) ==
PROVIDERS: Emergency Provider Emergency Medicine; PCP Student in an Organized Health Care Education/Training Program
DX: F41.9 Anxiety disorder, unspecified (principal); F32.9 Major depressive disorder, single episode, unspecified
CPT/HCPCS: 99281

== ENCOUNTER 2020-01-17 17:47 | Emergency (ER) | payer OTHER, MEDICAID, SELFPAY ==
[2020-01-17 17:56] VITALS: BP 117/78; PULSE 108; RESP 18; TEMP 37.1; O2SAT 99; BMI 23.6
--- NOTE | 2020-01-17 17:56 | DI.RAD.S_ITS ---
PROCEDURE: XR CHEST 1V INDICATIONS: chest pain TECHNIQUE: One view of the chest was acquired. COMPARISON: None. FINDINGS: Surgical changes and devices: None. Lungs and pleura: Lungs are clear. No pleural effusions or pneumothorax. Mediastinum: Mediastinal contours appear normal. Heart size is normal. Bones and chest wall: No suspicious bony lesions. Overlying soft tissues appear unremarkable. IMPRESSION: No acute cardiopulmonary disease process. Dictated by: Meghann Gutierrez MD, PhD on 01/17/2020 at 18:15 Approved by: Meghann Gutierrez MD, PhD on 01/17/2020 at 18:16
[2020-01-17 18:48] LABS: Prothrombin Time 10.9 SECONDS (10.1-12.7)
[2020-01-17 18:50] LABS: PTT Partial Thromboplastin Tim 31 SECONDS (26.4-36.2)
[2020-01-17 18:53] LABS: Alanine Aminotransferase 23 IU/L (<50); Albumin 4.6 g/dL (3.5-5.0); Albumin Globulin Ratio 1.8 (1.0-2.8); Alkaline Phosphatase 93 U/L (38-126); Aspartate Aminotransferase 31 IU/L (17-59); Bilirubin Total 0.3 mg/dL (0.2-1.3); Blood Urea Nitrogen 20 mg/dL (9-20); Calcium 9.4 mg/dL (8.4-10.2); Carbon Dioxide 29 mmol/L (22-32); Chloride 104 mmol/L (98-107); Creatine Kinase 76 U/L (55-170); Estimated Glomerular Filt Rate > 60.0 mL/min (>60); Globulin 2.6 g/dL (1.7-4.1); Glucose 87 mg/dL (70-100); HEMOLYSIS < 15 (0-50); Lipase 50 U/L (23-300); Potassium 3.7 mmol/L (3.4-5.1); Sodium 140 mmol/L (137-145); Total Protein 7.2 g/dL (6.3-8.2)
[2020-01-17 19:05] LABS: Troponin I < 0.012 ng/mL (0.01-0.034)
[2020-01-17 19:29] LABS: Add Manual Diff / Slide Review NO; Basophils Absolute Auto 100 /uL (0-100); Eosinophils Absolute Auto 200 /uL (0-450); Eosinophils Percent Auto 2.4 % (2-4); Hematocrit 35.5 % (41-53); Lymphocytes Absolute Auto 2800 /uL (1100-4500); Lymphocytes Percent Auto 29.8 % (25-40); Mean Corpuscular HGB Conc 33.9 % (30-36); Mean Corpuscular Hemoglobin 30.3 PG (26-34); Mean Corpuscular Volume 89.4 fL (80-100); Monocytes Absolute Auto 700 /uL (0-900); Monocytes Percent Auto 7.2 % (3-14); Neutrophils Absolute Auto 5600 /uL (1500-7000); Neutrophils Percent Auto 59.6 % (50-75); Platelet Count 326 X10^3/uL (150-400); Red Blood Cell Count 3.97 X10^6/uL (4.5-5.9); Red Cell Distribution Width 14.5 % (11.6-14.8); White Blood Cell Count 9.3 X10^3/uL (4.5-11.0)
--- NOTE | 2020-01-17 20:26 | ED_ITS ---
HPI - Chest Pain General Chief Complaint: Chest Pain Stated Complaint: SOB RAPID HEART RATE Time Seen by Provider: 01/17/20 18:50 Source: patient Mode of arrival: Family Vehicle Limitations: no limitations History of Present Illness HPI narrative: 34-year-old gentleman with a history of significant anxiety, reflux, and arthritis was planning on actually physically moving to [place] today and becoming anxious over the anticipated [address]. This morning he noticed that he was increasingly short of breath increasingly anxious and noticing spots in peripheral visual marshall. He came to the emergency room for further evaluation. While in the emergency room his mother, with whom he was moving to [place] and planning on caravaning together chose to start the trip and is currently on her way to [place]. Apparently his car is in the hospital parking lot but all of the rest of his belongings are with his mother on their way to [place]. Related Data Home Medications Medication Instructions Recorded Confirmed mirtazapine PO 03/21/19 12/29/19 omeprazole 20 mg capsule,delayed 20 mg PO DAILY 12/29/19 12/29/19 release Previous Rx's Medication Instructions Recorded venlafaxine 75 mg tablet 150 mg PO DAILY #180 tab 09/03/19 ondansetron 4 mg PO Q6-8H PRN #10 tab 11/13/19 mupirocin 2 % topical ointment 1 applictn TOP BID #15 gram 11/30/19 eszopiclone 1 mg tablet 1 mg PO BEDTIME #30 tab 12/21/19 alprazolam [Xanax] 2 mg PO BID PRN #14 tab 01/12/20 clonazepam 1 mg PO DAILY PRN 14 Days #14 tab 01/17/20 Allergies Allergy/AdvReac Type Severity Reaction Status Date / Time No Known Drug Allergies Allergy Verified 01/17/20 18:01 Review of Systems Review of Systems Narrative: Pertinent positive and negative findings as per HPI Remainder of review of systems is otherwise unremarkable for Constitutional: Fevers, chills, ENT: No sore throat, neck pain, ear pain CV: Chest pain, palpitations, Respiratory: Cough, wheeze, GI: Nausea, vomiting, diarrhea, : Dysuria, hematuria, flank pain Neuro: Syncope, dizziness, tingling Psych: Depression, anxiety, suicidal ideation Patient History Medical History ADHD (attention deficit hyperactivity disorder) (Chronic Unknown) Anorexia nervosa (Resolved ~2012) Anxiety (Chronic) Bipolar 1 disorder (Chronic) Carpal tunnel syndrome (Acute Unknown) Chickenpox (Inactive) Chickenpox (Resolved) Chronic back pain (Inactive ~2016) Chronic back pain (Chronic 2016) Depression (Chronic) Diarrhea (Acute) Fractures (Resolved Unknown) GI bleed (Resolved Unknown) GI bleeding (Inactive) Personality disorder (Chronic) Polyarthritis of multiple sites (Acute) PTSD (post-traumatic stress disorder) (Chronic) Rash and nonspecific skin eruption (Acute) Restless leg syndrome (Inactive) Restless leg syndrome (Chronic Unknown) Sleep apnea (Inactive) Sleep apnea (Chronic Unknown) Suicidal ideation (Acute) Tinnitus (Inactive) Tinnitus of both ears (Chronic Unknown) Surgical History Hx of wisdom tooth extraction (Resolved ~2007) [place] teeth extracted (Inactive) Family History Father Hypertension Hyperlipidemia Heart disease Mental health problem Mother Hyperlipidemia Hypertension Insomnia Depression Brother Heart disease Autistic disorder Insomnia Sister Hyperlipidemia Hypertension Family/Other Loud snoring Hypertension Diabetes mellitus Anxiety Dementia Alcohol abuse Social History Smoking Status: Current some day smoker alcohol intake: current (occasionally) substance use type: marijuana Smoking Status: Current some day smoker alcohol intake frequency: holidays/special occasions only Substance Use Type: marijuana Exam Narrative Exam Narrative: General: Healthy appearing, anxious but Able to give a complete and coherent history. Well-nourished well-developed HEENT: Moist mucous membranes, normal sclera with reactive pupils, Respiratory: Lungs are clear to auscultation, no wheezing no rales no rhonchi. Full and symmetrical air movement Cardiac: Regular rate and rhythm no murmurs no bruits Abdomen: Soft nontender good bowel tones, no flank pain Skin: Warm and dry, no rashes Neurologic: Grossly neurologically intact with no obvious asymmetries or abnormalities Extremities: No trauma, well perfused Psych: Cooperative, anxious, flat affect, fluent speech, no evidence of auditory or visual hallucinations Initial Vital Signs Initial Vital Signs: Vital Signs Temperature 98.8 F 01/17/20 17:56 Pulse Rate 108 H 01/17/20 17:56 Respiratory Rate 18 01/17/20 17:56 Blood Pressure 117/78 01/17/20 17:56 Pulse Oximetry 99 01/17/20 17:56 Course Orders Ordered: Discontinued Medications Clonazepam (Klonopin) 1 mg PO NOW ONE Stop: 01/17/20 20:49 Last Admin: 01/17/20 21:05 Dose: 1 mg Documented by: SHAY Vital Signs Vital signs: Vital Signs - 8 hr 01/17/20 17:56 Temperature 98.8 F Pulse Rate 108 H Respiratory Rate 18 Blood Pressure 117/78 Pulse Oximetry 99 MDM - Chest Pain Medical Records Data Attestation: I reviewed the patient's medical records. Lab Data Attestation: I reviewed the patient's lab results. Result diagrams: 01/17/20 18:22 01/17/20 18:22 Labs: Lab Results 01/17/20 01/17/20 01/17/20 Range/Units 18:22 18:22 18:22 WBC 9.3 (4.5-11.0) X10^3/uL RBC 3.97 L (4.5-5.9) X10^6/uL Hgb 12.0 L (13.5-17.5) g/dL Hct 35.5 L (41-53) % MCV 89.4 (80-100) fL MCH 30.3 (26-34) PG MCHC 33.9 (30-36) % RDW 14.5 (11.6-14.8) % Plt Count 326 (150-400) X10^3/uL Neut % (Auto) 59.6 (50-75) % Lymph % (Auto) 29.8 (25-40) % [place] % (Auto) 7.2 (3-14) % Eos % (Auto) 2.4 (2-4) % Baso % (Auto) 1.0 (0-2) % Neut # (Auto) 5600 (6321-8731) /uL Lymph # (Auto) 2800 (4132-0930) /uL [place] # (Auto) 700 (0-900) /uL Eos # (Auto) 200 (0-450) /uL Baso # (Auto) 100 (0-100) /uL PT 10.9 (10.1-12.7) SECONDS INR 1.0 (0.9-1.3) APTT 31 (26.4-36.2) SECONDS Sodium 140 (137-145) mmol/L Potassium 3.7 (3.4-5.1) mmol/L Chloride 104 (98-107) mmol/L Carbon Dioxide 29 (22-32) mmol/L BUN 20 (9-20) mg/dL Creatinine 1.00 (0.66-1.25) mg/dL Estimated GFR > 60.0 (>60) mL/min BUN/Creatinine Ratio 20.0 (6-22) Glucose 87 (70-100) mg/dL Calcium 9.4 (8.4-10.2) mg/dL Total Bilirubin 0.3 (0.2-1.3) mg/dL AST 31 (17-59) IU/L ALT 23 (<50) IU/L Alkaline Phosphatase 93 (38-126) U/L Total Creatine Kinase 76 (55-170) U/L CK-MB (CK-2) TNP CK-MB (CK-2) Rel Index TNP Troponin I < 0.012 (0.01-0.034) ng/mL Total Protein 7.2 (6.3-8.2) g/dL Albumin 4.6 (3.5-5.0) g/dL Globulin 2.6 (1.7-4.1) g/dL Albumin/Globulin Ratio 1.8 (1.0-2.8) Lipase 50 (23-300) U/L Imaging Data Chest x-ray: Radiologist's Impression: IMPRESSION: No acute cardiopulmonary disease process. Dictated by: Meghann Gutierrez MD, PhD on 01/17/2020 at 18:15 ECG Data Attestation: I personally reviewed and interpreted this ECG as follows: Interpretation: Sinus tach at 103 Normal intervals normal axis No acute ischemic changes MDM Narrative Medical decision making narrative: 34-year-old gentleman with significant anxiety feeling generally unwell increasingly anxious and some chest tightness. Cardiac workup is entirely unremarkable. He remains quite anxious and then finds out that his mother has quite literally moved on without him. She left to their new home in [place] leaving him at the hospital with his car while she has all of his belongings. He is having difficulty understanding this, and coming up with any type of plan. He does note that his father lives in town and he may be able to asking for help. He does have his car does not have much in touch insight into overall resources. Specifically asked about suicidal ideation particularly in light of the fact that he has been literally abandoned by his mother on the hospital doorstep today and he very clearly states that he is not suicidal. We had a long discussion about benzodiazepines for his anxiety. Well not an appropriate long-term solution and something that he has very appropriately weaned himself off of, with acute events of today, I believe that a brief course of clonazepam will be helpful. He is safe for home discharge. He does have his own car and he is planning to go to his father's home. Discharge Plan Departure Patient Disposition: Home Clinical Impression: Anxiety, Tachycardia Discharge Date/Time: 01/17/20 21:37 Instructions: DI for Anxiety -- Adult Activity Restrictions/Additional Instructions: Thank you for coming in today Your medical workup was very reassuring. There is no evidence of infection, you have no symptoms of coronavirus, no heart attack or heart attack leg syndrome, your lungs and heart look normal on your chest x-ray and there are no signs or symptoms of stroke. There are no life-threatening problems to explain the symptoms that you are having today. The symptoms you are having are still quite significant. After the thorough physical evaluation I believe that your anxiety is certainly playing a role. I have given you a dose of clonazepam in the emergency department as well as a prescription to continue 1 mg of clonazepam daily for the next 2 weeks if needed. I very much respect that you have recently worked youself off of this medication and would suggest only using it if you feel you truly need it. Please continue your venlafaxine for now. If you remain in the [place] area please follow-up with Dr. Frankel to discuss more effective treatment of your anxiety disorder. Today is been an awful day for you and I hope the rest of the day improves and you get some of the confusion worked out to your satisfaction. Good luck. 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 Prescriptions: New clonazepam 1 mg tablet 1 mg PO DAILY PRN (Reason: anxiety) 14 Days Qty: 14 RF: 0 No Action mirtazapine PO RF: 0 eszopiclone [Lunesta] 1 mg tablet 1 mg PO BEDTIME Qty: 30 RF: 0 venlafaxine 75 mg tablet 150 mg PO DAILY Qty: 180 RF: 1 omeprazole 20 mg capsule,delayed release(DR/EC) 20 mg PO DAILY RF: 0 mupirocin 2 % ointment 1 applictn TOP BID Qty: 15 RF: 0 alprazolam [Xanax] 2 mg tablet 2 mg PO BID PRN (Reason: anxiety) Qty: 14 RF: 0 ondansetron 4 mg tablet,disintegrating 4 mg PO Q6-8H PRN (Reason: nausea and vomiting) Qty: 10 RF: 0 Referrals: Levar Gusman MD [Primary Care Provider] -
[2020-01-17] MEDS: clonazePAM 0.5 MG TABLET 1 MG PO (21:05)
[2020-01-17 21:35] VITALS: BP 136/92; PULSE 95; RESP 23; O2SAT 99
== END 2020-01-17 21:37 | disposition home or self-care (01) ==
PROVIDERS: Emergency Medicine; Emergency Provider Emergency Medicine; PCP Student in an Organized Health Care Education/Training Program
DX: F41.9 Anxiety disorder, unspecified (principal); R00.0 Tachycardia, unspecified; R07.89 Other chest pain
CPT/HCPCS: 36415; 71045; 80053; 82550; 83690; 84484; 85025; 85610; 85730; 93005; 99283; 99284